=== PATIENT | male | born 1980 | race Caucasian/White ===

== ENCOUNTER 2018-10-22 20:47 | Emergency (ER) | payer OTHER ==
[2018-10-22 22:10] LABS: Urine Appearance Clear; Urine Bilirubin Negative (Negative); Urine Blood Negative (Negative); Urine Color Straw; Urine Glucose Negative (Negative); Urine Ketones Negative (Negative); Urine Nitrite Negative (Negative); Urine Protein Negative (Negative); Urine Specific Gravity 1.005 (1.010-1.030); Urine Urobilinogen Negative (Negative)
[2018-10-22] MEDS ORDERED: NS 0.9% 1000 ML* 1,000 ML IV ONE (22:11)
[2018-10-22] MEDS ORDERED: Acetaminophen TAB* 325 MG PO ONE (22:12)
[2018-10-22] MEDS ORDERED: Ketorolac INJ* 30 MG/ML 1 ML VIAL IV PUSH ONE (22:13)
--- NOTE | 2018-10-22 22:20 | ED ---
Complex/Multi-Sys Presentation - HPI Summary HPI Summary: This patient is a 38 year old M presenting to [facility] accompanied by his father with a after he had an episode of light headedness with bilateral UE numbness that occurred earlier tonight. The patient states that the last two nights he has had upper back pain that will jolt him awake with adrenaline and when this occurs he also has a shooting sensation down both arms. Tonight he was putting his daughter to sleep when he became lightheaded, had numbness, and paresthesia down bilateral UE in the middle fingers. When this occurred he states he also experienced nausea, not SOB but he had to focus to breath, he also had chills, and tremors. He states the episode lasted 5 minutes and he has been having mild intermittent episodes since but without nausea. The patient rates the pain 4/10 in severity. Patient reports foul smelling stools. Patient denies v/d, injury, and CP. Pt denies aggravation with position change. He did have Hodgkins lymphoma that has been in remission for 3 years now and is not on mediation currently. - History Of Current Complaint Chief Complaint: EDGeneral Time Seen by Provider: 10/22/18 21:54 Hx Obtained From: Patient Onset/Duration: Sudden Onset, Lasting Minutes - 5 Timing: Intermittent, Lasting: - 5 min Severity Currently: Moderate Severity Initially: Mild Associated Signs And Symptoms: Positive: Other - light headedness, numbness, - Allergies/Home Medications Allergies/Adverse Reactions: Allergies Allergy/AdvReac Type Severity Reaction Status Date / Time acetaminophen [From Percocet] Allergy Unknown Verified 10/22/18 20:58 Reaction Details oxycodone [From Percocet] Allergy Unknown Verified 10/22/18 20:58 Reaction Details PMH/Surg Hx/FS Hx/Imm Hx Endocrine/Hematology History: Denies: Hx Diabetes Cardiovascular History: Denies: Hx Hypercholesterolemia Respiratory History: Reports: Other Respiratory Problems/Disorders - hodgkins lymphoma dx 12/2014 Denies: Hx Pneumonia Neurological History: Denies: Hx Developmental Delay - Cancer History Cancer Type, Location and Year: Hodgkins lymphoma 2014 - Surgical History Surgery Procedure, Year, and Place: APPY Infectious Disease History: No Infectious Disease History: Denies: Traveled Outside the [place] in Last 30 Days - Family History Known Family History: Negative: Seizure Disorder - Social History Occupation: Employed Full-time Lives: With Family Alcohol Use: Occasionally Hx Substance Use: No Substance Use Type: Reports: None Hx Tobacco Use: No Smoking Status (MU): Never Smoked Tobacco Review of Systems Positive: Chills. Negative: Fever Negative: Chest Pain Positive: Other - see HPI Positive: Nausea, Other - "foul smelling stools" . Negative: Vomiting - injury , Diarrhea Musculoskeletal: Other - tremors Positive: Other - upper back pain Neurological: Other - lightheadedness Positive: Paresthesia, Numbness All Other Systems Reviewed And Are Negative: Yes Physical Exam - Summary Physical Exam Summary: VITAL SIGNS: Reviewed. GENERAL: Patient is a well-developed and nourished male who is lying comfortable in the stretcher. Patient is not in any acute respiratory distress. HEAD AND FACE: No signs of trauma. No ecchymosis, hematomas or skull depressions. No sinus tenderness. EYES: PERRLA, EOMI x 2, No injected conjunctiva, no nystagmus. EARS: Hearing grossly intact. Ear canals and tympanic membranes are within normal limits. MOUTH: Oropharynx within normal limits. NECK: Supple, trachea is midline, no adenopathy, no JVD, no carotid bruit, no c- spine tenderness, neck with full ROM. CHEST: Symmetric, no tenderness at palpation LUNGS: Clear to auscultation bilaterally. No wheezing or crackles. CVS: Regular rate and rhythm, S1 and S2 present, no murmurs or gallops appreciated. ABDOMEN: Soft, non-tender. No signs of distention. No rebound no guarding, and no masses palpated. Bowel sounds are normal. EXTREMITIES: FROM in all major joints, no edema, no cyanosis or clubbing. NEURO: Alert and oriented x 3. No acute neurological deficits. Speech is normal and follows commands. SKIN: Dry and warm Triage Information Reviewed: Yes Vital Signs On Initial Exam: Initial Vitals Temp Pulse Resp BP Pulse Ox 99.0 F 82 16 126/80 100 10/22/18 20:55 10/22/18 20:55 10/22/18 20:55 10/22/18 20:55 10/22/18 20:55 Vital Signs Reviewed: Yes Diagnostics - Vital Signs Vital Signs Temp Pulse Resp BP Pulse Ox 10/22/18 20:55 99.0 F 82 16 126/80 100 - Laboratory Lab Results: Lab Results 10/22/18 Range/Units 21:56 Urine Color Straw Urine Appearance Clear Urine pH 7.0 (5-9) Ur Specific [place] 1.005 L (1.010-1.030) Urine Protein Negative (Negative) Urine Ketones Negative (Negative) Urine Blood Negative (Negative) Urine Nitrate Negative (Negative) Urine Bilirubin Negative (Negative) Urine Urobilinogen Negative (Negative) Ur Leukocyte Esterase Negative (Negative) Urine Glucose Negative (Negative) Result Diagrams: 10/22/18 21:59 10/22/18 21:59 Lab Statement: Any lab studies that have been ordered have been reviewed, and results considered in the medical decision making process. - Radiology CXR Radiology Interpretation Completed By: ED Physician Summary of Radiographic Findings: Right basal atelectasis. No acute infiltrate. Pending official report. Complex Multi-Symp Course/Dx Assessment/Plan: This patient is a 38 year old M presenting to [facility] accompanied by his father with a after he had an episode of light headedness with bilateral UE numbness that occurred earlier tonight. The patient states that the last two nights he has had upper back pain that will jolt him awake with adrenaline and when this occurs he also has a shooting sensation down both arms. Tonight he was putting his daughter to sleep when he became lightheaded, had numbness, and paresthesia down bilateral UE in the middle fingers. When this occurred he states he also experienced nausea, not SOB but he had to focus to breath, he also had chills, and tremors. He states the episode lasted 5 minutes and he has been having mild intermittent episodes since but without nausea. The patient rates the pain 4/10 in severity. Patient reports foul smelling stools. Patient denies v/d, injury, and CP. Pt denies aggravation with position change. He did have Hodgkins lymphoma that has been in remission for 3 years now and is not on mediation currently. CXR reveals, Right basal atelectasis. No acute infiltrate. Pending official report. Bloodwork obtained. In the ED course the patient was given toradol and IV fluids. Patient will be discharged with prescription for motrin and follow up from PCP. The patient is agreeable with this plan. - Diagnoses Provider Diagnoses: Viral syndrome Discharge - Sign-Out/Discharge Documenting (check all that apply): Patient Departure - Discharge Plan Condition: Stable Disposition: HOME Prescriptions: Ibuprofen TAB* [Motrin TAB* 800 MG] 800 mg PO Q6H PRN #30 tab PRN Reason: Pain Patient Education Materials: Viral Syndrome (ED) Referrals: Tomas Munson MD [Primary Care Provider] - Additional Instructions: RETURN TO THE EMERGENCY DEPARTMENT FOR CHANGING OR WORSENING SYMPTOMS - Attestation Statements Document Initiated by Scribe: Yes Documenting Scribe: Abbe Che Provider For Whom Scribe is Documenting (Include Credential): Melly Hernandez MD Scribe Attestation: IAbbe , scribed for Melly Hernandez MD on 10/22/18 at 3064. Status of Scribe Document: Ready
[2018-10-22 23:01] LABS: ABS Basophils 0 10^3/ul (0-0.2); ABS Eosinophils 0.1 10^3/ul (0-0.6); ABS Lymphocytes 1.2 10^3/ul (1.0-4.8); ABS Monocytes 0.5 10^3/ul (0-0.8); ABS Neutrophils 6.6 10^3/ul (1.5-7.7); ABS Nucleated RBC 0 10^3/ul; Eosinophil % 1.2 %; Hematocrit 38 % (42-52); Hemoglobin 13.2 g/dl (14.0-18.0); Mean Corpuscular HGB Conc 35 g/dl (31-36); Mean Corpuscular Hemoglobin 31 pg (27-31); Mean Corpuscular Volume 89 fL (80-94); Mean Platelet Volume 7.1 fL (7.4-10.4); Nucleated Red Blood Cells % 0.1; Platelet Count 217 10^3/ul (150-450); Red Blood Count 4.25 10^6/ul (4.00-5.40); Red Cell Distribution Width 14 % (10.5-15); White Blood Count 8.4 10^3/ul (3.5-10.8)
[2018-10-22 23:09] LABS: Activated Partial Thrombo Time 34.4 seconds (26.0-36.3); INR 0.96 (0.77-1.02)
[2018-10-22 23:20] LABS: ALT 22 U/L (7-52); AST 21 U/L (13-39); Albumin 4.3 g/dL (3.2-5.2); Albumin/Globulin Ratio 1.6 (1-3); Alkaline Phosphatase 36 U/L (34-104); Anion Gap 6 mmol/L (2-11); BUN/Creatinine Ratio 19.8 (8-20); Blood Urea Nitrogen 17 mg/dL (6-24); C Reactive Protein < 1.00 mg/L (<8.01); CO2 Carbon Dioxide 27 mmol/L (22-32); Calcium 9.2 mg/dL (8.6-10.3); Chloride 103 mmol/L (101-111); Creatine Kinase 115 U/L (10-223); EGFR Non-African American 99.5 (>60); Globulin 2.7 g/dL (2-4); Glucose 97 mg/dL (70-100); Potassium 3.6 mmol/L (3.5-5.0); Sodium 136 mmol/L (135-145)
[2018-10-23 00:03] LABS: Erythrocyte Sed Rate 7 mm/Hr (0-14)
[2018-10-23 00:17] VITALS: BP 104/61
== END 2018-10-23 00:16 | disposition home or self-care (01) ==
LOC: ED 20:47
DX: B34.9 Viral infection, unspecified (principal); R42 Dizziness and giddiness; M54.9 Dorsalgia, unspecified; R11.0 Nausea
CPT/HCPCS: 36415; 71045; 80053; 81003; 82550; 83605; 83880; 84484; 85025; 85610; 85652; 85730; 86140; 87040; 96374; 99283; A9270-GY; J1885